=== PATIENT | male | born 1940 ===

== ENCOUNTER 2018-10-19 09:42 | Emergency (ER) | payer MEDICARE ==
[~2018-10-19] VITALS: Ht 167.6 cm; Wt 57.0 kg
--- NOTE | 2018-10-19 10:23 | NUR ---
pt taken to radiology
[2018-10-19 10:28] LABS: BASOPHILS # (AUTO) 0.04 x10^3/uL (0-0.1); BASOPHILS % (AUTO) 1 % (0-1); EOSINOPHILS # (AUTO) 0.06 x10^3/uL (0-0.4); EOSINOPHILS % (AUTO) 1 % (1-7); LYMPHOCYTES # (AUTO) 1.42 x10^3/uL (1-3.4); LYMPHOCYTES % (AUTO) 21 % (22-44); MD NO; MEAN CORPUSCULAR HEMOGLOBIN 29.1 pg (27.5-34.5); MEAN CORPUSCULAR HGB CONC 33.2 g/dL (33.2-36.2); MEAN CORPUSCULAR VOLUME 87.8 fL (81-97); MEAN PLATELET VOLUME 8.8 fL (7.4-10.4); MONOCYTES # (AUTO) 0.42 x10^3/uL (0.2-0.8); MONOCYTES % (AUTO) 6 % (2-9); NEUTROPHILS % (AUTO) 71 % (42-75); PLATELET COUNT 181 x10^3/uL (130-400); RED BLOOD COUNT 5.39 x10^6/uL (4.38-5.82); RED CELL DISTRIBUTION WIDTH 14.4 % (9.4-14.8)
[2018-10-19 10:41] LABS: ALBUMIN 4.1 g/dL (3.4-5.0); ANION GAP 7 mmol/L (5-15); CALCIUM 9.2 mg/dL (8.5-10.1); CHLORIDE 106 mmol/L (98-107)
[2018-10-19 10:44] LABS: CREATININE 1.28 mg/dL (0.7-1.3)
--- NOTE | 2018-10-19 10:52 | NUR ---
PT PRESETED TO ED WITH HEADACHE AND BACK PAIN 10 DAYS. PT PLACED IN ROOM AND PLACED ON BP AND CONT. PULSE OXIMETER. ASSESSMENT COMPLETED. ORDERS RECEIVED.
[2018-10-19] MEDS ORDERED: CEFUROXIME 250 MG TABLET PO ONE (11:30)
[2018-10-19] MEDS ORDERED: OXYcodone/APAP 5/325MG TABLET PO ONE (12:00)
[2018-10-19] MEDS ORDERED: OXYcodone/APAP 5/325MG TABLET ONE (12:23)
[2018-10-19 12:37] VITALS: BP 130/64
== END 2018-10-19 12:39 | disposition home or self-care (01) ==
LOC: ED 12:24
DX: J01.00 Acute maxillary sinusitis, unspecified (principal); M54.2 Cervicalgia; M54.6 Pain in thoracic spine
CPT/HCPCS: 36415; 70450; 71045; 72125; 80048; 82040; 85025; 99284